=== PATIENT | female | born 1980 | race Caucasian/White ===

== ENCOUNTER → 2016-07-06 | Outpatient (CLI) | payer OTHER ==
[~2016-07-06] MED LIST: PRENTAB26 PO
== END | disposition home or self-care (01) ==
LOC: C.PAPS 10:31
PROVIDERS: ATTEND Obstetrics & Gynecology
DX: Z12.4 Encounter for screening for malignant neoplasm of cervix (principal)

== ENCOUNTER → 2016-09-14 | Outpatient (CLI) | payer OTHER ==
[2016-09-17 13:22] LABS: CHLAMYDIA TRACH RNA*** NOT DETECTED (NOT DETECTED); GC (NEIS GONORRHOEAE)RNA** NOT DETECTED (NOT DETECTED)
== END | disposition home or self-care (01) ==
LOC: C.LABSPEC 14:56
PROVIDERS: ATTEND Obstetrics & Gynecology
DX: Z34.81 Encounter for supervision of other normal pregnancy, first trimester (principal)

== ENCOUNTER → 2016-10-22 | Outpatient (CLI) | payer OTHER ==
[2016-10-22 09:34] LABS: BASO % 0.5 %; BASO ABS # 0.03 K/uL (0-0.2); COMPLETE YES; EOS % 1.7 %; IG% 0.3 %; LYMPH % 24.2 %; MEAN CORPUSCULAR HEMOGLOBIN 31.3 pg (25-34); MEAN CORPUSCULAR HGB CONC 33.3 g/dl (32-36); MEAN PLATELET VOLUME 10.8 fL (7.4-10.4); MONO % 5.2 %; NEUT % 68.1 %; PLATELET COUNT 237 K/uL (130-400); RED BLOOD COUNT 4.15 M/uL (4.2-5.4); WHITE BLOOD COUNT 5.79 K/uL (4.8-10.8)
[2016-10-22 10:35] LABS: GTGD 50 Grams
== END | disposition home or self-care (01) ==
LOC: C.LAB 07:22
PROVIDERS: ATTEND Obstetrics & Gynecology
DX: O09.511 Supervision of elderly primigravida, first trimester (principal); Z3A.00 Weeks of gestation of pregnancy not specified

== ENCOUNTER → 2017-03-29 | Outpatient (CLI) | payer OTHER | END | disposition home or self-care (01) | LOC: C.LABSPEC 14:22 | PROVIDERS: ATTEND Obstetrics & Gynecology | DX: Z34.83 Encounter for supervision of other normal pregnancy, third trimester (principal); Z3A.00 Weeks of gestation of pregnancy not specified ==

== ENCOUNTER 2017-04-18 14:07 | Inpatient (IN) | payer OTHER ==
[~2017-04-18] VITALS: Ht 165.1 cm; Wt 98.6 kg
[2017-04-19 20:05] VITALS: Ht 165.1 cm; Wt 98.6 kg
[2017-04-19] MEDS ORDERED: LACTATED RINGER'S 1000ML 1,000 ML IV PRN (20:37)
[2017-04-19] MEDS ORDERED: MISOPROSTOLTAB 50 MCG TAB PO ONE (20:45)
[2017-04-19] MEDS ORDERED: BUTORPHANOL TARTRATE 1 MG/ML VIAL IV PRN (20:45)
[2017-04-19 20:57] LABS: HEMATOCRIT 37.1 % (37-47); MEAN CELL VOLUME 94.4 fL (80-100); MEAN CORPUSCULAR HEMOGLOBIN 31.8 pg (25-34); MEAN CORPUSCULAR HGB CONC 33.7 g/dl (32-36); MEAN PLATELET VOLUME 10.9 fL (7.4-10.4); PLATELET COUNT 222 K/uL (130-400); RED BLOOD COUNT 3.93 M/uL (4.2-5.4); WHITE BLOOD COUNT 9.06 K/uL (4.8-10.8)
[2017-04-20] MEDS ORDERED: MISOPROSTOLTAB 50 MCG TAB PO ONE ×2 (00:15→08:00)
[2017-04-20] MEDS ORDERED: ACETAMINOPHEN 325 MG TAB PO STA (05:40)
[2017-04-20] MEDS ORDERED: NURSING VERBAL MED ORDER ONE ×2 (05:45→10:10)
[2017-04-20] MEDS ORDERED: DINOPROSTONE 10 MG INSERT PV ONE (08:30)
[2017-04-20] MEDS ORDERED: ACETAMINOPHEN 325 MG TAB ONE (10:10)
[2017-04-20] MEDS ORDERED: ACETAMINOPHEN 325 MG TAB PO PRN ×2 (15:00→23:45)
[2017-04-20] MEDS ORDERED: FENTANYL 2MCG/ML ROPIV 1.25MG/ML 100ML BAG EPI ONE (16:29)
[2017-04-20] MEDS ORDERED: BUPIVACAINE 0.25% 30 ML VIAL ONE (16:29)
[2017-04-20] MEDS ORDERED: EpHEDrine SULFATE INJ 50 MG/ML AMP ONE (16:29)
[2017-04-20] MEDS ORDERED: FENTANYL CITRATE INJ 50 MCG/1 ML 2 ML VIAL ONE (16:30)
[2017-04-20] MEDS: LACTATED RINGER'S 1000ML 1,000 ML IV SCH ×2 (16:36→18:51)
[2017-04-20] MEDS ORDERED: LACTATED RINGER'S 1000ML 500 ML IV PRN ×2 (17:17→17:23)
[2017-04-20] MEDS ORDERED: NALOXONE HCL INJ 1 MG in SODIUM CHLORIDE 0.9% 1000ML 1,000 ML IV PRN (17:23)
[2017-04-20] MEDS ORDERED: OXYTOCIN 30 UNITS/500ML NSS IV PRN ×2 (17:30→23:45)
[2017-04-20] MEDS ORDERED: EpHEDrine SULFATE INJ 50 MG/ML AMP IV PRN (17:30)
[2017-04-20] MEDS ORDERED: ONDANSETRON INJ 2 MG/ML 2 ML VIAL IV PRN (17:30)
[2017-04-20] MEDS ORDERED: NALOXONE HCL INJ 0.4 MG/1 ML VIAL/CARP IV PRN (17:30)
[2017-04-20] MEDS ORDERED: NALBUPHINE HCL INJ 10 MG/ML AMP IV PRN (17:30)
[2017-04-20] MEDS ORDERED: DiphenhydrAMINE HCL 50 MG/ML VIAL IV PRN (17:30)
[2017-04-20] MEDS: FENTANYL 2MCG/ML ROPIV 1.25MG/ML 100ML BAG EPI PRN ×2 (19:01→23:01)
[2017-04-20] MEDS: IBUPROFEN 600 MG TAB PO PRN (23:41)
[2017-04-20] MEDS ORDERED: OXYCODONE/ACETAMINOPHEN 5-325 TAB PO PRN (23:45)
[2017-04-20] MEDS ORDERED: HYDROCORTISONE ACETATE 25 MG SUPP PR PRN (23:45)
[2017-04-20] MEDS ORDERED: BENZOCAINE 20% AER SPR 82.5 GM CAN EXT PRN (23:45)
[2017-04-20] MEDS ORDERED: ACETAMINOPHEN/CODEINE 300/30MG TAB PO PRN ×2 (23:45)
[2017-04-20] MEDS ORDERED: DIPHTHERIA/TETANUS/PERTUSSIS 0.5 ML SYR/VIAL IM. ONE (23:45)
[2017-04-20] MEDS ORDERED: SUPERCREAM 0.870 % 15GM JAR EXT PRN (23:45)
[2017-04-20] MEDS ORDERED: LANOLIN OINT EXT PRN ×2 (23:45)
[2017-04-21 01:30] VITALS: BP 114/56; PULSE 82; TEMP 36.5
--- NOTE | 2017-04-21 01:36 | DELIVERY SUMMARY ---
DATE OF OPERATION: 04/20/2017 The patient is a 37-year-old 3, para 3, good general health. Last menstrual period was 07/22/2016. Her due date is 04/25/2017. Blood type is O positive. Rubella immune. Vaginal beta strep negative. Requested induction at 39+ weeks gestation. Was brought in, she had a long induction, given p.o. Cytotec 50 mcg twice, then went to a Cervidil tape, and then from the tape, she had epidural for pain control. Then, after the epidural tape was removed, she was started on IV Pitocin and membranes were ruptured surgically. Fluid was clear. We had difficulty establishing a good regular pattern. Had to keep upping the Pitocin, eventually she got into the regular pattern and delivered quite easily, brought the head down, delivered a live male infant via direct occiput anterior over an intact perineum. There was a nuchal cord around the body which had to be reduced. Cord was clamped, cut by the father. Cord blood was taken. With IV Pitocin running, the placenta was removed intact. Uterus contracted nicely. Inspection of the perineum revealed a first-degree laceration of the perineum. 2-0 Vicryl was used to approximate the vaginal mucosa out and to beyond the hymenal ring. A deep suture of 2-0 Vicryl was used to approximate the bulbocavernosus muscle, separate deep suture was used to approximate the perineal body and a running subcuticular suture was used to approximate the perineal skin edges. Following this, vag exam including rectovaginal examination revealed no hematoma formation or sponges in the vagina. Estimated blood loss was 300 mL. Apgars were 8 and 9 respectively. I attest to the content of the Intraoperative Record and any orders documented therein. Any exception s are noted below.
[2017-04-21 04:00] VITALS: BP 112/74; PULSE 69; TEMP 36.5
[2017-04-21] MEDS: IBUPROFEN 600 MG TAB PO PRN ×5 (04:14→20:09)
[2017-04-21 06:46] LABS: HEMATOCRIT 35.5 % (37-47)
[2017-04-21 07:45] VITALS: BP 119/81; PULSE 74; TEMP 36.6; O2SAT 97
[2017-04-21] MEDS: PRENATAL VITAMIN TAB PO SCH (08:01)
[2017-04-21] MEDS: FERROUS SULFATE 325 MG TAB PO SCH (08:01)
[2017-04-21] MEDS: DOCUSATE SODIUM 100 MG CAP PO SCH ×2 (08:01→20:00)
--- NOTE | 2017-04-21 09:24 | Progress Note ---
Subjective Apr 21, 2017. Subjective conversation w/ patient Ambulation: ambulating normally Voiding: no voiding problems Passing Gas: No Diet Tolerance: Clear Liquids Lochia: Small Feeding Type: Breast Feeding Review of Systems Constitutional: + fever Objective Vital Signs Date Time Temp Pulse Resp B/P (MAP) Pulse Ox O2 Delivery O2 Flow Rate FiO2 04/21/17 07:45 36.6 74 18 119/81 (94) 97 Room Air 04/21/17 07:45 Room Air 04/21/17 04:00 36.5 69 18 112/74 (87) Room Air 04/21/17 01:30 36.5 82 18 114/56 (75) Room Air 04/21/17 01:30 Room Air Physical Exam General Appearance: WELL-APPEARING Respiratory/Chest: lungs clear Abdomen: non tender, + abnormal bowel sounds Fundus: Firm, Non-Tender Incision Description: Clean, Dry & Intact Extremities: no pedal edema, no calf tenderness Laboratory Results Last 24 Hours Test 04/21/17 06:27 Hemoglobin 12.2 g/dL Hematocrit 35.5 % Assessment and Plan Post-Op Day#: 1 Continue Routine Care: hypoactive bowel sounds
--- NOTE | 2017-04-21 09:34 | Progress Note ---
Subjective Apr 21, 2017. Subjective conversation w/ patient Ambulation: ambulating normally Voiding: no voiding problems Passing Gas: Yes Diet Tolerance: Regular Diet Lochia: Small Feeding Type: Breast Feeding Review of Systems Constitutional: + fever Objective Vital Signs Date Time Temp Pulse Resp B/P (MAP) Pulse Ox O2 Delivery O2 Flow Rate FiO2 04/21/17 07:45 36.6 74 18 119/81 (94) 97 Room Air 04/21/17 07:45 Room Air 04/21/17 04:00 36.5 69 18 112/74 (87) Room Air 04/21/17 01:30 36.5 82 18 114/56 (75) Room Air 04/21/17 01:30 Room Air Physical Exam General Appearance: WELL-APPEARING Respiratory/Chest: lungs clear Abdomen: non tender Fundus: Firm, Non-Tender Extremities: no pedal edema, no calf tenderness Laboratory Results Last 24 Hours Test 04/21/17 06:27 Hemoglobin 12.2 g/dL Hematocrit 35.5 % Assessment and Plan Post-, Post-Op Day#: 1
[2017-04-21 11:30] VITALS: BP 108/72; PULSE 65; TEMP 36.4
[2017-04-21 16:00] VITALS: BP 130/78; PULSE 71; TEMP 36.4
[2017-04-21 20:00] VITALS: BP 113/69; PULSE 78; TEMP 36.8
[2017-04-21] MEDS ORDERED: BISACODYL 5 MG TABEC PO SCH (20:00)
[2017-04-22] VITALS: BP 102/73; PULSE 80; TEMP 36.4
[2017-04-22] MEDS ORDERED: BISACODYL 10 MG SUPP PR PRN (07:00)
[2017-04-22 07:12] VITALS: BP 112/72; PULSE 62; TEMP 36.5; O2SAT 97
[2017-04-22] MEDS: FERROUS SULFATE 325 MG TAB PO SCH (08:12)
[2017-04-22] MEDS: DOCUSATE SODIUM 100 MG CAP PO SCH (08:12)
[2017-04-22] MEDS: PRENATAL VITAMIN TAB PO SCH (08:12)
--- NOTE | 2017-04-22 08:56 | Progress Note ---
Subjective Apr 22, 2017. Subjective conversation w/ patient Ambulation: ambulating normally Voiding: no voiding problems Passing Gas: Yes Diet Tolerance: Regular Diet Lochia: Small Feeding Type: Breast Feeding Review of Systems Constitutional: + fever Objective Vital Signs Date Time Temp Pulse Resp B/P (MAP) Pulse Ox O2 Delivery O2 Flow Rate FiO2 04/22/17 07:12 36.5 62 20 112/72 (85) 97 Room Air 04/22/17 00:00 Room Air 04/22/17 00:00 36.4 80 18 102/73 (83) Room Air 04/21/17 20:00 36.8 78 18 113/69 (84) Room Air 04/21/17 16:00 Room Air 04/21/17 16:00 36.4 71 18 130/78 (95) Room Air 04/21/17 11:30 36.4 65 18 108/72 (84) Room Air Physical Exam General Appearance: WELL-APPEARING Respiratory/Chest: lungs clear Abdomen: normal bowel sounds, non tender Fundus: Firm, Non-Tender Extremities: no pedal edema, no calf tenderness Assessment and Plan Post-, Post-Op Day#: 2
--- NOTE | 2017-04-22 08:58 | Discharge Instructions ---
Discharge Instructions Date of Service Apr 22, 2017. Admission Reason for Admission: IUP Discharge Discharge Diagnosis / Problem: term induction Discharge Goals Goal(s): Routine recovery after delivery Activity Recommendations Activity Limitations: as noted below ACTIVITY RECOMMENDATIONS: * Gradual return to full activity over the next 2-3 weeks. * No lifting - nothing heavier than baby over the next 2-3 weeks. * Do not engage in vigorous exercise, sexual activity or sports until cleared by your physician. * Do not drive or operate any motorized equipment until cleared by your physician. * You may shower/bathe daily. DIET: Resume Previous Diet If Breast-feeding: * Increase caloric intake by 500 calories, eat 3 well balanced meals, 2 high protein snacks a day and drink 6-8 8oz. glasses of fluid per day. BREAST CARE: If you are not breast feeding: * Wear a supportive bra 24 hours a day for one to two weeks. * Avoid stimulating your breasts and nipples as much as possible during the first few weeks after delivery. * When taking a shower, have the warm water hit your back, not breasts. * When your breasts feel full, apply ice packs. Usually three to four times a day helps ease the discomfort. * Take a mild pain medication (Tylenol / Motrin) when you are uncomfortable. If breast feeding: * Use breast milk to lubricate nipples. Lansinoh cream may be used for sore nipples. You do not need to remove cream prior to breast feeding. If using a different brand of cream, check the label for directions regarding removal of cream prior to nursing. * Wear a supportive bra. * If having problems with breasts or breast feeding, call a philatelic consultant or your health care provider. OVER THE COUNTER MEDICATION: * For discomfort or pain, you may use Acetaminophen (Tylenol), Ibuprofen (Advil ), or Naproxen (Aleve) following the package directions. * For constipation you may use Colace following the package directions. SPECIAL CARE INSTRUCTIONS: * Vaginal rest (no tampons, douching, intercourse) until after doctor 's visit. * control as discussed with doctor. * Verbalizes understanding of car seat law as reviewed with patient nursing. * Car Seat hand-out given and reviewed with patient by nursing. * Shaken baby information reviewed with patient by nursing. Call you doctor if: * Temperature greater than or equal to 100.4 degrees F or 38.0 degrees C. Take your temperature twice daily for a week. * Bleeding becomes heavier than the heaviest part of your period - saturating a sanitary pad within an hour. * Passing large clots. * Bleeding has a foul smelling odor. * Signs and symptoms of phlebitis: leg pain, warm, red or swollen area on leg. * "Baby Blues" lasting longer than two weeks. ++ If you have had a and incision has increased pain, redness, swelling, presence of any drainage, or if the incision starts to open up. If you have any questions or concerns, call your health care practitioner at [phone]. FOLLOW-UP VISIT: Please call the office at to schedule a 6 week examination. . Current Hospital Diet ACTIVITY RECOMMENDATIONS: * Gradual return to full activity over the next 2-3 weeks. * No lifting - nothing heavier than baby over the next 2-3 weeks. * Do not engage in vigorous exercise, sexual activity or sports until cleared by your physician. * Do not drive or operate any motorized equipment until cleared by your physician. * You may shower/bathe daily. DIET: Resume Previous Diet If Breast-feeding: * Increase caloric intake by 500 calories, eat 3 well balanced meals, 2 high protein snacks a day and drink 6-8 8oz. glasses of fluid per day. BREAST CARE: If you are not breast feeding: * Wear a supportive bra 24 hours a day for one to two weeks. * Avoid stimulating your breasts and nipples as much as possible during the first few weeks after delivery. * When taking a shower, have the warm water hit your back, not breasts. * When your breasts feel full, apply ice packs. Usually three to four times a day helps ease the discomfort. * Take a mild pain medication (Tylenol / Motrin) when you are uncomfortable. If breast feeding: * Use breast milk to lubricate nipples. Lansinoh cream may be used for sore nipples. You do not need to remove cream prior to breast feeding. If using a different brand of cream, check the label for directions regarding removal of cream prior to nursing. * Wear a supportive bra. * If having problems with breasts or breast feeding, call a philatelic consultant or your health care provider. OVER THE COUNTER MEDICATION: * For discomfort or pain, you may use Acetaminophen (Tylenol), Ibuprofen (Advil ), or Naproxen (Aleve) following the package directions. * For constipation you may use Colace following the package directions. SPECIAL CARE INSTRUCTIONS: * Vaginal rest (no tampons, douching, intercourse) until after doctor 's visit. * control as discussed with doctor. * Verbalizes understanding of car seat law as reviewed with patient nursing. * Car Seat hand-out given and reviewed with patient by nursing. * Shaken baby information reviewed with patient by nursing. Call you doctor if: * Temperature greater than or equal to 100.4 degrees F or 38.0 degrees C. Take your temperature twice daily for a week. * Bleeding becomes heavier than the heaviest part of your period - saturating a sanitary pad within an hour. * Passing large clots. * Bleeding has a foul smelling odor. * Signs and symptoms of phlebitis: leg pain, warm, red or swollen area on leg. * "Baby Blues" lasting longer than two weeks. ++ If you have had a and incision has increased pain, redness, swelling, presence of any drainage, or if the incision starts to open up. If you have any questions or concerns, call your health care practitioner at [phone]. FOLLOW-UP VISIT: Please call the office at to schedule a 6 week examination. Patient's current hospital diet: Regular Diet Discharge Diet Recommended Diet: Regular Diet Pending Studies Studies pending at discharge: no Medical Emergencies . Who to Call and When: Medical Emergencies: If at any time you feel your situation is an emergency, please call 911 immediately. . Non-Emergent Contact Non-Emergency issues call your: Beverage Manager Call Non-Emergent contact if: temperature is above 100.5 . . "Provider Documentation" section prepared by Hakan Kramer. . VTE Core Measure Inpt VTE Proph given/why not?: Treatment not indicated
[2017-04-22 11:59] VITALS: BP_DIAS 72; PULSE 62; TEMP 36.5
== END 2017-04-22 12:26 | disposition home or self-care (01) | DRG 775 ==
LOC: C.LD 04-19 19:19 → C.OBG 04-21 01:43
PROVIDERS: ADMIT Obstetrics & Gynecology; ATTEND Obstetrics & Gynecology
PROC: 3E033VJ Introduction of Other Hormone into Peripheral Vein, Percutaneous Approach (ICD-10-PCS; principal; 2017-04-20)
PROC: 10E0XZZ Delivery of Products of Conception, External Approach (ICD-10-PCS; principal; 2017-04-20)
PROC: 0HQ9XZZ Repair Perineum Skin, External Approach (ICD-10-PCS; principal; 2017-04-20)
DX: O70.0 First degree perineal laceration during delivery (principal); O09.523 Supervision of elderly multigravida, third trimester; Z37.0 Single live birth; Z3A.39 39 weeks gestation of pregnancy

== ENCOUNTER → 2017-06-07 | Outpatient (CLI) | payer OTHER | END | disposition home or self-care (01) | LOC: C.PAPS 16:20 | PROVIDERS: ATTEND Obstetrics & Gynecology | DX: Z39.2 Encounter for routine postpartum follow-up (principal) ==